=== PATIENT | male | born 1995 | race Caucasian/White ===

== ENCOUNTER 2019-06-21 21:41 | Emergency (ER) | payer BC ==
[~2019-06-21] VITALS: Ht 175.3 cm; Wt 72.6 kg
[2019-06-21 22:46] LABS: CREATININE 0.9 mg/dL (0.6-1.3)
[2019-06-21 22:57] LABS: POTASSIUM 2.8 mmol/L (3.5-5.1)
[2019-06-21] MEDS ORDERED: POTASSIUM CHLORIDE 20 MEQ TAB.PRT.SR PO ONE (23:00)
[2019-06-21] MEDS ORDERED: ONDANSETRON ODT 4 MG TAB.RAPDIS SL ONE (23:00)
[2019-06-21] MEDS ORDERED: ONDANSETRON ODT 4 MG TAB.RAPDIS ONE (23:05)
[2019-06-21] MEDS ORDERED: POTASSIUM CHLORIDE 20 MEQ TAB.PRT.SR ONE (23:05)
--- NOTE | 2019-06-21 23:13 | NUR ---
Patient discharged to home in stable conditon. Written and verbal after care instructions given. Patient verbalizes understanding of instructions. Pt walked out of ER in stable gait with staff member from rehab facility. Pt appears in no distress. Vital signs stable. Resp. even + unlabored.
[2019-06-21 23:14] VITALS: BP 128/66
== END 2019-06-21 23:14 | disposition home or self-care (01) ==
LOC: ER 21:44
DX: Z00.00 Encounter for general adult medical examination without abnormal findings (principal); F17.200 Nicotine dependence, unspecified, uncomplicated; F15.10 Other stimulant abuse, uncomplicated; F11.10 Opioid abuse, uncomplicated
CPT/HCPCS: 36415; A4663; Q0162

== ENCOUNTER 2019-06-25 18:51 | Emergency (ER) | payer BC ==
[~2019-06-25] VITALS: Ht 175.3 cm; Wt 74.8 kg
--- NOTE | 2019-06-25 21:27 | NUR ---
Dr. Mccormick at bedside for MSE.
--- NOTE | 2019-06-25 21:37 | NUR ---
Xray at bedside.
[2019-06-25] MEDS ORDERED: MAGNESIUM CITRATE 296 ML BOTTLE ONE ×2 (22:41→22:43)
[2019-06-25 22:44] VITALS: BP 138/90
--- NOTE | 2019-06-25 22:44 | NUR ---
Patient discharged to home in stable conditon. Written and verbal after care instructions given. Patient verbalizes understanding of instructions. Pt ambulated out of ER with steady gait, no acute signs of distress, VSS, all belongings taken.
[2019-06-25] MEDS ORDERED: MAGNESIUM CITRATE 296 ML BOTTLE PO ONE (22:45)
== END 2019-06-25 22:45 | disposition home or self-care (01) ==
LOC: ER 18:51
DX: T18.9XXA Foreign body of alimentary tract, part unspecified, initial encounter (principal); F17.200 Nicotine dependence, unspecified, uncomplicated; F11.10 Opioid abuse, uncomplicated; F15.10 Other stimulant abuse, uncomplicated; X58.XXXA Exposure to other specified factors, initial encounter; Y93.89 Activity, other specified; Y92.89 Other specified places as the place of occurrence of the external cause; Y99.8 Other external cause status
CPT/HCPCS: A4663

== ENCOUNTER 2020-07-26 04:32 | Emergency (ER) | payer BC ==
[~2020-07-26] VITALS: Ht 180.3 cm; Wt 77.1 kg
--- NOTE | 2020-07-26 05:10 | NUR ---
PATIENT WAS MSE BY DR VICTOR IN ROOM 03A.
--- NOTE | 2020-07-26 06:35 | NUR ---
Patient discharged to home in stable condition. Written and verbal after care instructions given. Patient verbalizes understanding of instructions. Stressed follow up or return to ER for worsening s/s. Ambulated out of ED in steady gait.
[2020-07-26 06:37] VITALS: BP 135/70
== END 2020-07-26 06:38 | disposition home or self-care (01) ==
LOC: ER 04:37
DX: Z02.2 Encounter for examination for admission to residential institution (principal); Z20.822 Contact with and (suspected) exposure to COVID-19; Z86.19 Personal history of other infectious and parasitic diseases; F19.10 Other psychoactive substance abuse, uncomplicated
CPT/HCPCS: A4663